=== PATIENT | female | born 1955 | race Caucasian/White ===

== ENCOUNTER 2025-06-04 22:06 | Inpatient (IN) | payer MEDICARE, OTHER ==
[~2025-06-04] VITALS: Ht 162.6 cm; Wt 69.9 kg
[2025-06-04 22:08] VITALS: O2SAT 98
[2025-06-04 23:07] LABS: BASOPHILS % 0.4 % (0.0-2.0); EOSINOPHILS % 0.1 % (0.0-5.0); HEMATOCRIT. 45.2 % (36.0-48.0); HEMOGLOBIN. 15.6 g/dL (12.0-16.0); LYMPHOCYTES % 15.1 % (20.0-50.0); MEAN PLATELET VOLUME 10.6 fl (7.4-10.4); MONOCYTES % 4.5 % (2.0-8.0); NEUTROPHILS % 79.9 % (40.0-76.0); PLATELET 171 x1000/uL (130-400); RED BLOOD CELL COUNT 5.00 mill/uL (4.2-5.4); RED CELL DISTRIBUTION WIDTH 13.5 % (11.6-14.6)
[2025-06-04] MEDS: ONDANSETRON HCL 4MG/2ML INJ IV ONE (23:09)
[2025-06-04] MEDS: SODIUM CHLORIDE 0.9% 1,000 ML IV ONE (23:09)
[2025-06-04] MEDS: MORPHINE SULFATE 4 MG/ML INJ (FOR IV/IM USE) IV ONE (23:09)
[2025-06-04 23:12] LABS: CLARITY URINE CLEAR (CLEAR); COLOR URINE YELLOW (YELLOW); GLUCOSE URINE 3+ (NEGATIVE); KETONES URINE 3+ (NEGATIVE); LEUKOCYTE ESTERASE URINE NEGATIVE (NEGATIVE); NITRITE URINE NEGATIVE (NEGATIVE); OCCULT BLOOD URINE NEGATIVE (NEGATIVE); PH URINE 8.0 (4.5-8.0); PROTEIN URINE NEGATIVE (NEGATIVE); SPECIFIC GRAVITY URINE 1.035 (1.005-1.030); UROBILINOGEN URINE 0.2 E.U./dL (0.2-1.0)
[2025-06-04 23:19] LABS: CREATININE 0.8 mg/dL (0.6-1.0)
[2025-06-04 23:20] LABS: UREA NITROGEN BLOOD 11 mg/dL (9-23)
[2025-06-04 23:21] LABS: ASPARTATE AMINOTRANSFERASE 826 IU/L (<34)
[2025-06-04 23:22] LABS: BILIRUBIN DIRECT 1.0 mg/dL (<=3.0); BILIRUBIN TOTAL 2.2 mg/dL (0.1-1.0); PROTEIN TOTAL 7.4 g/dL (6.0-8.3)
[2025-06-04 23:29] LABS: BG BASE EXCESS -1.4 mmol/L (-2.0-3.0); BG CARBOXYHEMOGLOBIN 0.5 % (0.5-1.5); BG DEOXYHEMOGLOBIN 6.0 % (0.0-5.0); BG FRACTION INSPIRED OXYGEN 21; BG HCO3 ACT 22.3 mmol/L (21.0-28.0); BG METHEMOGLOBIN 0.3 % (0.5-1.5); BG OXYGEN SATURATION 94.0 % (94.0-98.0); BG OXYHEMOGLOBIN 93.2 % (94.0-98.0); BG PCO2 34.5 mmHg (32.0-45.0); BG PH 7.428 (7.350-7.450); BG PO2 68.5 mmHg (83.0-108.0); BG SAMPLE SITE RIGHT RADIAL; BG TOTAL HEMOGLOBIN 14.6 g/dL (12.0-16.0); BG VENT MODE ROOM AIR
[2025-06-05 00:15] LABS: BACTERIA URINE RARE; RBC URINE 0-2 /hpf (0-2); SQUAMOUS EPITHELIAL CELL URINE FEW /lpf (RARE/1+); WBC URINE 0-2 /hpf (0-2)
[2025-06-05] MEDS ORDERED: IOHEXOL-300 100 ML BOTTLE ONE (01:34)
[2025-06-05] MEDS ORDERED: GUAIFENESIN 200MG/10ML SUGAR FREE UDC PO PRN (03:15)
[2025-06-05] MEDS ORDERED: DEXTROSE 50% WATER 50ML SYRINGE IV PRN (03:15)
[2025-06-05] MEDS ORDERED: LORAZEPAM 0.5MG TABLET PO PRN (03:15)
[2025-06-05] MEDS ORDERED: MORPHINE SULFATE 2 MG/ML INJ (NOT FOR IM USE) IV PRN ×2 (03:15→19:30)
[2025-06-05] MEDS ORDERED: ONDANSETRON HCL 4MG/2ML INJ IV PRN (03:15)
[2025-06-05] MEDS ORDERED: IPRATROPIUM/ALBUTEROL 0.5-3(2.5)MG/3ML NEB HHN PRN (03:15)
[2025-06-05] MEDS ORDERED: CLONIDINE 0.1MG TABLET PO PRN (03:15)
[2025-06-05] MEDS ORDERED: ACETAMINOPHEN 325MG TABLET PO PRN (03:15)
[2025-06-05] MEDS: INSULIN LISPRO 100 UNITS/ML SUBCUT NR (04:51)
[2025-06-05 05:15] VITALS: BP 166/76; PULSE 83; RESP 20; TEMP 36.5848
[2025-06-05] MEDS: BLOOD SUGAR DIAGNOSTIC STRIP TEST SCH (07:20)
[2025-06-05 08:00] VITALS: BP 139/77; PULSE 96; RESP 18; TEMP 36.9; O2SAT 98
[2025-06-05] MEDS ORDERED: NALOXONE HCL 0.4MG/ML VIAL IV PRN (08:45)
[2025-06-05] MEDS: AMLODIPINE 5MG TABLET PO SCH (09:56)
[2025-06-05] MEDS: ENOXAPARIN 40MG/0.4ML SYR SUBCUT SCH (09:56)
[2025-06-05] MEDS: INSULIN LISPRO 100 UNITS/ML SUBCUT SCH (09:57)
[2025-06-05 11:22] LABS: CREATININE 0.7 mg/dL (0.6-1.0); HEMATOCRIT. 42.6 % (36.0-48.0); HEMOGLOBIN. 14.6 g/dL (12.0-16.0); MEAN PLATELET VOLUME 10.0 fl (7.4-10.4); PLATELET 173 x1000/uL (130-400); RED BLOOD CELL COUNT 4.76 mill/uL (4.2-5.4); RED CELL DISTRIBUTION WIDTH 13.9 % (11.6-14.6)
[2025-06-05 11:23] LABS: TRIGLYCERIDE 104.0 mg/dL (0-150); TROPONIN I HIGH SENSITIVITY < 4 ng/L (3.0-34); UREA NITROGEN BLOOD 8 mg/dL (9-23)
[2025-06-05 11:24] LABS: LDL CHOLESTEROL 85.0 mg/dL (5-100)
[2025-06-05 11:27] LABS: T4 FREE 0.6 ng/dL (0.89-1.76)
[2025-06-05] MEDS: PANTOPRAZOLE SODIUM 40 MG/VIAL IV SCH (11:38)
[2025-06-05 12:00] VITALS: BP 123/62; PULSE 88; RESP 17; TEMP 37; O2SAT 97
[2025-06-05] MEDS: INSULIN GLARGINE 100 UNITS/ML SUBCUT SCH (13:43)
[2025-06-05] MEDS: LACTATED RINGERS 1,000 ML IV SCH (13:52)
[2025-06-05 16:00] VITALS: BP 152/71; PULSE 103; RESP 19; TEMP 36.7; O2SAT 94
[2025-06-05 18:10] LABS: TROPONIN I HIGH SENSITIVITY < 4 ng/L (3.0-34)
[2025-06-05 20:00] VITALS: BP 125/75; PULSE 90; RESP 20; TEMP 36.6; O2SAT 96
[2025-06-05] MEDS: SODIUM CHLORIDE 0.45% 1,000 ML IV SCH (20:21)
[2025-06-05 21:51] LABS: CREATININE 0.6 mg/dL (0.6-1.0); UREA NITROGEN BLOOD 10 mg/dL (9-23)
[2025-06-05 21:52] LABS: TROPONIN I HIGH SENSITIVITY 4 ng/L (3.0-34)
[2025-06-05 22:38] LABS: BG BASE EXCESS -1.9 mmol/L (-2.0-3.0); BG CARBOXYHEMOGLOBIN 1.4 % (0.5-1.5); BG DEOXYHEMOGLOBIN 6.1 % (0.0-5.0); BG FLOW(L/min) 2.00 L/min; BG FRACTION INSPIRED OXYGEN 28; BG HCO3 ACT 21.4 mmol/L (21.0-28.0); BG METHEMOGLOBIN 0.3 % (0.5-1.5); BG OXYGEN SATURATION 93.8 % (94.0-98.0); BG OXYHEMOGLOBIN 92.2 % (94.0-98.0); BG PCO2 32.9 mmHg (32.0-45.0); BG PH 7.432 (7.350-7.450); BG PO2 62.0 mmHg (83.0-108.0); BG SAMPLE SITE LEFT BRACHIAL; BG TOTAL HEMOGLOBIN 14.6 g/dL (12.0-16.0); BG VENT MODE NASAL CANNULA
[2025-06-06] VITALS: BP 130/75; PULSE 87; RESP 18; TEMP 36.2; O2SAT 99
[2025-06-06 01:24] LABS: INR 1.2
[2025-06-06] MEDS: KCL 10MEQ/50ML PREMIX 50 ML IV SCH (02:06)
[2025-06-06 04:00] VITALS: BP 124/60; PULSE 85; RESP 18; TEMP 36.4; O2SAT 99
[2025-06-06] MEDS: LEVOTHYROXINE SODIUM 100 MCG/ VIAL IV SCH (06:10)
[2025-06-06 06:25] LABS: CREATININE 0.6 mg/dL (0.6-1.0); UREA NITROGEN BLOOD 11 mg/dL (9-23)
[2025-06-06 06:27] LABS: ASPARTATE AMINOTRANSFERASE 422 IU/L (<34)
[2025-06-06 06:28] LABS: BILIRUBIN DIRECT 3.0 mg/dL (<=3.0); BILIRUBIN TOTAL 5.6 mg/dL (0.1-1.0); PHOSPHORUS 1.7 mg/dL (2.5-4.9); PROTEIN TOTAL 5.8 g/dL (6.0-8.3)
[2025-06-06 06:52] LABS: BASOPHILS % 0.1 % (0.0-2.0); EOSINOPHILS % 0.0 % (0.0-5.0); HEMATOCRIT. 41.7 % (36.0-48.0); HEMOGLOBIN. 14.2 g/dL (12.0-16.0); LYMPHOCYTES % 8.3 % (20.0-50.0); MEAN PLATELET VOLUME 10.6 fl (7.4-10.4); MONOCYTES % 5.2 % (2.0-8.0); NEUTROPHILS % 86.4 % (40.0-76.0); PLATELET 138 x1000/uL (130-400); RED BLOOD CELL COUNT 4.63 mill/uL (4.2-5.4); RED CELL DISTRIBUTION WIDTH 14.0 % (11.6-14.6)
[2025-06-06] MEDS ORDERED: LEVOTHYROXINE SODIUM 25MCG TABLET PO SCH (07:20)
[2025-06-06 08:00] VITALS: BP 107/60; PULSE 96; RESP 19; TEMP 36.5; O2SAT 95
[2025-06-06] MEDS: INSULIN GLARGINE 100 UNITS/ML SUBCUT SCH (10:13)
[2025-06-06 12:00] VITALS: BP 117/61; PULSE 89; RESP 12; TEMP 36.9; O2SAT 93
[2025-06-06] MEDS: POTASSIUM PHOSPHATE 30 MMOL in SODIUM CHLORIDE 0.9% 490 ML IV NR (12:52)
[2025-06-06] MEDS: PIPERACILLIN/TAZO 3.375G/50ML 50 ML IV SCH (13:56)
[2025-06-06] MEDS: ACETAMINOPHEN 325MG TABLET PO PRN (14:06)
[2025-06-06 16:00] VITALS: BP 101/51; PULSE 99; RESP 18; TEMP 36.6
[2025-06-06 16:12] LABS: LYMPHOCYTES % MANUAL 8.0 % (20.0-60.0); MONOCYTES % MANUAL 7.0 % (2.0-8.0); NEUTROPHILS % MANUAL 85.0 % (45.0-75.0); PLATELET ESTIMATE NORMAL
[2025-06-06 20:00] VITALS: BP 122/64; PULSE 90; RESP 20; TEMP 36.3; O2SAT 95
[2025-06-06] MEDS: LACTATED RINGERS 1,000 ML IV SCH (20:00)
[2025-06-07] VITALS (7 sets, daily range): BP systolic 107–151; BP diastolic 55–79; PULSE 86–104; RESP 18–20; TEMP 35.8–36.7; O2SAT 96–99
[2025-06-07 07:04] LABS: BASOPHILS % 0.3 % (0.0-2.0); EOSINOPHILS % 0.4 % (0.0-5.0); HEMATOCRIT. 37.9 % (36.0-48.0); HEMOGLOBIN. 13.2 g/dL (12.0-16.0); LYMPHOCYTES % 10.0 % (20.0-50.0); MEAN PLATELET VOLUME 10.1 fl (7.4-10.4); MONOCYTES % 6.4 % (2.0-8.0); NEUTROPHILS % 82.9 % (40.0-76.0); PLATELET 126 x1000/uL (130-400); RED BLOOD CELL COUNT 4.27 mill/uL (4.2-5.4); RED CELL DISTRIBUTION WIDTH 14.0 % (11.6-14.6)
[2025-06-07 07:07] LABS: CREATININE 0.5 mg/dL (0.6-1.0)
[2025-06-07 07:08] LABS: UREA NITROGEN BLOOD 8 mg/dL (9-23)
[2025-06-07 07:09] LABS: ASPARTATE AMINOTRANSFERASE 189 IU/L (<34); BILIRUBIN DIRECT 2.7 mg/dL (<=3.0); T4 FREE 0.44 ng/dL (0.89-1.76)
[2025-06-07 07:10] LABS: BILIRUBIN TOTAL 4.3 mg/dL (0.1-1.0); PROTEIN TOTAL 5.7 g/dL (6.0-8.3)
[2025-06-07 07:56] LABS: PHOSPHORUS 0.9 mg/dL (2.5-4.9)
[2025-06-07 08:20] LABS: HEPATITIS A AB IGM NEGATIVE (Negative)
[2025-06-07 08:21] LABS: HEPATITIS B CORE AB IGM NEGATIVE (Negative)
[2025-06-07 09:10] LABS: HEPATITIS C AB NON REACTIVE (Neg) (Negative)
[2025-06-07 13:12] LABS: FOLICLE STIMULATING HORMONE 25.5 mIU/mL (25.8-134.8); LUTEINIZING HORMONE 12.3 mIU/mL (7.7-58.5); PROLACTIN 4.0 ng/mL (3.6-25.2)
[2025-06-07] MEDS: POTASSIUM PHOSPHATE 30 MMOL in SODIUM CHLORIDE 0.9% 490 ML IV ONE (14:19)
[2025-06-07] MEDS: SODIUM PHOSPHATE 15 MMOL in DEXT 5% WATER 245 ML IV ONE (22:03)
[2025-06-08] VITALS: BP 156/80; PULSE 96; RESP 18; TEMP 36.6; O2SAT 95
[2025-06-08 04:00] VITALS: BP 118/67; PULSE 76; RESP 18; TEMP 36.1; O2SAT 95
[2025-06-08 06:21] LABS: CREATININE 0.5 mg/dL (0.6-1.0)
[2025-06-08 06:22] LABS: UREA NITROGEN BLOOD 6 mg/dL (9-23)
[2025-06-08 06:23] LABS: ASPARTATE AMINOTRANSFERASE 84 IU/L (<34); BILIRUBIN DIRECT 1.1 mg/dL (<=3.0); BILIRUBIN TOTAL 2.6 mg/dL (0.1-1.0); PROTEIN TOTAL 5.4 g/dL (6.0-8.3)
[2025-06-08 06:24] LABS: PHOSPHORUS 2.1 mg/dL (2.5-4.9)
[2025-06-08 06:27] LABS: BASOPHILS % 0.3 % (0.0-2.0); EOSINOPHILS % 0.4 % (0.0-5.0); HEMATOCRIT. 39.0 % (36.0-48.0); HEMOGLOBIN. 13.1 g/dL (12.0-16.0); LYMPHOCYTES % 13.9 % (20.0-50.0); MEAN PLATELET VOLUME 10.4 fl (7.4-10.4); MONOCYTES % 9.7 % (2.0-8.0); NEUTROPHILS % 75.7 % (40.0-76.0); PLATELET 137 x1000/uL (130-400); RED BLOOD CELL COUNT 4.36 mill/uL (4.2-5.4); RED CELL DISTRIBUTION WIDTH 14.0 % (11.6-14.6)
[2025-06-08] MEDS ORDERED: INSULIN LISPRO 100 UNITS/ML SUBCUT SCH (07:20)
[2025-06-08] MEDS: INSULIN LISPRO 100 UNITS/ML SUBCUT SCH (07:20)
[2025-06-08] MEDS ORDERED: BLOOD SUGAR DIAGNOSTIC STRIP TEST SCH (07:20)
[2025-06-08] MEDS: INSULIN LISPRO (LOW DOSE) 100 UNITS/ML SUBCUT SCH (07:20)
[2025-06-08 08:00] VITALS: BP 137/66; PULSE 80; RESP 18; TEMP 36.4; O2SAT 97
[2025-06-08 16:00] VITALS: BP 123/61; PULSE 81; RESP 19; TEMP 36.7; O2SAT 95
[2025-06-08] MEDS ORDERED: BLOO-1992 MC (19:21)
[2025-06-08] MEDS ORDERED: LEVO25TA7 PO (19:21)
[2025-06-08] MEDS ORDERED: NEED-122 SQ (19:21)
[2025-06-08] MEDS ORDERED: INSU100I28 SQ (19:21)
[2025-06-08 20:00] VITALS: BP 149/80; PULSE 84; RESP 19; TEMP 36.4; O2SAT 100
[2025-06-09] VITALS: BP 133/61; PULSE 82; RESP 18; TEMP 36.6; O2SAT 97
[2025-06-09 04:00] VITALS: BP 118/58; PULSE 76; RESP 18; TEMP 36; O2SAT 98
[2025-06-09 08:00] VITALS: BP 135/62; PULSE 74; RESP 17; TEMP 36.5; O2SAT 96; O2SAT 98
[2025-06-09] MEDS: FAMOTIDINE 20MG/2ML VIAL IV SCH (09:19)
[2025-06-09 11:03] VITALS: BP 127/67; PULSE 86; RESP 17; TEMP 97.4
[2025-06-09 11:38] LABS: BASOPHILS % 0.4 % (0.0-2.0); EOSINOPHILS % 0.7 % (0.0-5.0); HEMATOCRIT. 40.0 % (36.0-48.0); HEMOGLOBIN. 13.3 g/dL (12.0-16.0); LYMPHOCYTES % 17.4 % (20.0-50.0); MEAN PLATELET VOLUME 10.3 fl (7.4-10.4); MONOCYTES % 8.6 % (2.0-8.0); NEUTROPHILS % 72.9 % (40.0-76.0); PLATELET 147 x1000/uL (130-400); RED BLOOD CELL COUNT 4.43 mill/uL (4.2-5.4); RED CELL DISTRIBUTION WIDTH 14.2 % (11.6-14.6)
[2025-06-09 11:49] LABS: CREATININE 0.5 mg/dL (0.6-1.0)
[2025-06-09 11:50] LABS: UREA NITROGEN BLOOD < 5 mg/dL (9-23)
[2025-06-09 11:51] LABS: ASPARTATE AMINOTRANSFERASE 46 IU/L (<34)
[2025-06-09 11:52] LABS: BILIRUBIN TOTAL 1.8 mg/dL (0.1-1.0); PROTEIN TOTAL 5.9 g/dL (6.0-8.3)
[2025-06-09 12:00] VITALS: BP 131/70; PULSE 79; RESP 18; TEMP 36.7; O2SAT 96
[2025-06-09] MEDS: POTASSIUM CHLORIDE 20MEQ TABLET SR PO NR ×2 (12:49→18:48)
[2025-06-09] MEDS: KCL 20MEQ/100ML PREMIX 100 ML IV SCH (12:50)
[2025-06-09] MEDS: DOCUSATE SODIUM 100MG CAPSULE PO PRN (13:48)
[2025-06-09 16:00] VITALS: BP 127/67; PULSE 86; RESP 17; TEMP 36.3; O2SAT 96
[2025-06-09 18:08] LABS: CREATININE 0.5 mg/dL (0.6-1.0); UREA NITROGEN BLOOD 6 mg/dL (9-23)
[2025-06-09] MEDS ORDERED: KCL 20MEQ/100ML PREMIX 100 ML IV SCH (23:00)
[2025-06-10] MEDS ORDERED: LEVOTHYROXINE SODIUM 50MCG TABLET PO SCH (07:20)
== END 2025-06-09 19:05 | disposition home or self-care (01) | DRG 439 ==
LOC: ER 22:06 → 6WST 06-05 02:26 → EDBEDREQTM 06-05 02:41 → EDBEDREQDT 06-05 02:41 → EDBEDREQ 06-05 02:41 → ENRESERV 06-05 03:12
PROVIDERS: ADMIT Internal Medicine; ATTEND Internal Medicine
DX: K85.80 Other acute pancreatitis without necrosis or infection (principal); I16.1 Hypertensive emergency; K80.50 Calculus of bile duct without cholangitis or cholecystitis without obstruction; E11.65 Type 2 diabetes mellitus with hyperglycemia; F41.9 Anxiety disorder, unspecified; I16.0 Hypertensive urgency; E87.6 Hypokalemia; E83.39 Other disorders of phosphorus metabolism; E03.9 Hypothyroidism, unspecified; I10 Essential (primary) hypertension; K59.00 Constipation, unspecified; K76.0 Fatty (change of) liver, not elsewhere classified; Z79.4 Long term (current) use of insulin; Z79.899 Other long term (current) drug therapy; Z90.49 Acquired absence of other specified parts of digestive tract; Z91.199 Patient's noncompliance with other medical treatment and regimen due to unspecified reason
CPT/HCPCS: 36415; 36600; 71045; 74177; 74181; 76700; 80048; 80053; 80061; 80076; 81003; 82010; 82024; 82140; 82150; 82375; 82533; 82550; 82787; 82805; 82962; 82977; 83001; 83002; 83036; 83735; 84100; 84146; 84439; 84443; 84484; 84681; 85025; 86376; 86705; 86709; 87340; 93005; 93970; 97161; 97165; 99291; J1308; J1650; J1815; J2270; J2405; J2470; J2543; J3480; J3490; J7030; J7040; J7060; J7120; Q9967